=== PATIENT | female | born 1985 | race American Indian/Alaskan Native ===

== ENCOUNTER 2018-02-05 18:16 | Emergency (ER) | payer SELFPAY ==
[2018-02-05 18:22] VITALS: BMI 32.8
[2018-02-05 20:21] LABS: URINE APPEARANCE CLEAR (CLEAR); URINE BILIRUBIN NEGATIVE (NEGATIVE); URINE BLOOD LARGE (NEGATIVE); URINE COLOR YELLOW (YELLOW); URINE GLUCOSE (UA) NEGATIVE (NEGATIVE); URINE LEUKOCYTE ESTERASE NEGATIVE Leu/uL (NEGATIVE); URINE PROTEIN TRACE mg/dL (<30 mg/dL); URINE UROBILINOGEN 0.2 E.U./dL (<1 E.U./dL)
[2018-02-05 20:22] LABS: HCG,QUALITATIVE URINE POSITIVE (NEGATIVE)
[2018-02-05 20:30] LABS: URINE BACTERIA SMALL (NEG); URINE WBC NEGATIVE /hpf (0-6)
[2018-02-05 20:53] LABS: BASO # 0.02 K/mm3 (0.0-2.0); BASO % 0.3 % (0.0-3.0); EOS # 0.1 (0.0-0.7); EOS % 2.1 % (1.5-5.0); GRAN # 3.54 (1.4-6.5); GRAN % 58.1 % (50.0-68.0); HEMOGLOBIN 11.2 g/dL (12.0-16.0); LYMPH % 32.5 % (22.0-35.0); MEAN CELL VOLUME 84.3 fl (80.0-105.0); MEAN PLATELET VOLUME 11.2 fl (7.0-11.0); MONO # 0.4 (0.1-0.6); RBC 4.15 10^6/uL (3.5-6.1); RED CELL DISTRIBUTION WIDTH 13.9 % (11.5-14.5); WHITE BLOOD COUNT 6.1 10^3/uL (4.5-11.0)
[2018-02-05 21:00] LABS: INR 1.03; PROTHROMBIN TIME 11.8 SECONDS (9.4-12.5)
[2018-02-05 21:03] LABS: ALB/GLOB RATIO 1.3 (1.1-1.8); ALBUMIN 4.3 g/dL (3.0-4.8); ALT/SGPT 16 U/L (7-56); AST/SGOT 25 U/L (14-36); BLOOD UREA NITROGEN 18 mg/dL (7-21); CALCIUM 9.4 mg/dL (8.4-10.5); GFR NON-AFRICAN AMERICAN > 60
--- NOTE | 2018-02-05 21:19 | ED PDOC ---
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 States her LMP was December 19 and she started spotting 3days ago. States she was seen at [facility] [place] and was advised to return in 48hrs for a repeat blood work. States her Beta was 2100 2days ago. She denies abdominal pain. Denies nausea, vomiting, fever, chills, urinary symptoms, any other complaint. Past Medical History - Provider Review Nursing Documentation Reviewed: Yes - Infectious Disease Hx of Infectious Diseases: None - Cardiac Hx Cardiac Disorders: No - Pulmonary Hx Asthma: Yes (inhaler as needed) - Musculoskeletal/Rheumatological Hx Musculoskeletal Disorders: No - Psychiatric Hx Substance Use: No - Anesthesia Hx Anesthesia: No Family/Social History - Physician Review Nursing Documentation Reviewed: Yes Family/Social History: Unknown Family HX Smoking Status: Never Smoked Hx Alcohol Use: No Hx Substance Use: No Allergies/Home Meds Allergies/Adverse Reactions: Allergies acetaminophen Allergy (Verified 02/05/18 19:19) RASH shellfish derived Allergy (Verified 02/05/18 19:19) RASH Review of Systems - Physician Review All systems were reviewed & negative as marked: Yes - Review of Systems Constitutional: Normal Eyes: Normal ENT: Normal Respiratory: Normal Cardiovascular: Normal Gastrointestinal: Normal. absent: Abdominal Pain Genitourinary Female: Vaginal Bleeding Musculoskeletal: Normal Skin: Normal Neurological: Normal Endocrine: Normal Hemo/Lymphatic: Normal Psychiatric: Normal Physical Exam Vital Signs Reviewed: Yes Vital Signs Temp Pulse Resp BP Pulse Ox 02/05/18 18:21 98.0 F 88 18 117/77 100 Temperature: Afebrile Blood Pressure: Normal Pulse: Regular Respiratory Rate: Normal Appearance: Positive for: Well-Appearing, Non-Toxic, Comfortable Pain Distress: None Mental Status: Positive for: Alert and Oriented X 3 - Systems Exam Head: Present: Atraumatic, Normocephalic Pupils: Present: PERRL Extroacular Muscles: Present: EOMI Conjunctiva: Present: Normal Mouth: Present: Moist Mucous Membranes Neck: Present: Normal Range of Motion Respiratory/Chest: Present: Clear to Auscultation, Good Air Exchange. No: Respiratory Distress, Accessory Muscle Use Cardiovascular: Present: Regular Rate and Rhythm, Normal S1, S2. No: Murmurs Abdomen: Present: Normal Bowel Sounds. No: Tenderness, Distention, Peritoneal Signs, Rebound, Guarding, McBurney's Point Tender, Rovsing's Sign Present Genitourinary/Pelvic Exam: No: Cervical os Closed Back: Present: Normal Inspection Upper Extremity: Present: Normal Inspection. No: Cyanosis, Edema Lower Extremity: Present: Normal Inspection. No: Edema Neurological: Present: GCS=15, CN II-XII Intact, Speech Normal Skin: Present: Warm, Dry, Normal Color. No: Rashes Psychiatric: Present: Alert, Oriented x 3, Normal Insight, Normal Concentration Medical Decision Making ED Course and Treatment: 02/05/18 22:52 PT presented for stated history She was not in any distress [place] [id number] [place] noted. It was higher than the 2100 she had 2days ago Impression Single live intrauterine gestation Less than 4 weeks size. Gestational sac is seen. No pole or heart rate identified. Bilateral ovarian cysts. Consider follow up study in 1-2 weeks as clinically warranted. 02/06/18 01:30 Result was DW the pt. She was advised to f/u with OB in 48hrs for repeat beta and in 2weeks for repeat US - Lab Interpretations Lab Results: 02/05/18 20:38 02/05/18 20:38 Lab Results 02/05/18 20:38: Sodium 139, Potassium 3.7, Chloride 105, Carbon Dioxide 23, Anion Gap 14, BUN 18, Creatinine 0.8, Est GFR ( Amer) > 60, Est GFR (Non- Af Amer) > 60, Random Glucose 89, Calcium 9.4, Total Bilirubin 0.2, AST 25, ALT 16, Alkaline Phosphatase 48, Total Protein 7.5, Albumin 4.3, Globulin 3.2, Albumin/Globulin Ratio 1.3 02/05/18 20:38: PT 11.8, INR 1.03, APTT 34.0 02/05/18 20:38: WBC 6.1, RBC 4.15, Hgb 11.2 L, Hct 35.0 L, MCV 84.3, MCH 27.0, MCHC 32.0, RDW 13.9, Plt Count 207, MPV 11.2 H, Gran % 58.1, Lymph % (Auto) 32.5, [place] % (Auto) 7.0 H, Eos % (Auto) 2.1, Baso % (Auto) 0.3, Gran # 3.54, Lymph # (Auto) 2.0, [place] # (Auto) 0.4, Eos # (Auto) 0.1, Baso # (Auto) 0.02 02/05/18 20:02: Urine Color Yellow, Urine Appearance Clear, Urine pH 6.0, Ur Specific [place] >= 1.030, Urine Protein Trace H, Urine Glucose (UA) Negative, Urine Ketones Negative, Urine Blood Large H, Urine Nitrate Negative, Urine Bilirubin Negative, Urine Urobilinogen 0.2, Ur Leukocyte Esterase Negative, Urine RBC 5 - 10, Urine WBC Negative, Ur Epithelial Cells 4 - 5, Urine Bacteria Small, Urine HCG, Qual Positive - RAD Interpretation Radiology Orders: 02/05/18 20:09 TRANSVAGINAL [US] Stat Disposition/Present on Arrival - Present on Arrival Any Indicators Present on Arrival: No History of DVT/PE: No History of Uncontrolled Diabetes: No Urinary Catheter: No History of Decub. Ulcer: No History Surgical Site Infection Following: None - Disposition Have Diagnosis and Disposition been Completed?: Yes Diagnosis: Threatened Disposition: HOME/ ROUTINE Disposition Time: 22:55 Patient Plan: Discharge Condition: STABLE Discharge Instructions (ExitCare): Threatened Miscarriage (DC) Additional Instructions: Follow up with your OB in 48hrs for a repeat beta Return to Emergency department for any new symptoms Referrals: Mary Marrero MD [Primary Care Provider] - Follow up with primary Mariela Cardona MD [Staff Provider] - Follow up with primary Forms: [employer] (Danish), WORK NOTE
[2018-02-05 22:33] VITALS: RESP 17
[2018-02-05 23:08] VITALS: BP 105/62; PULSE 78; TEMP 98.1; O2SAT 99
--- NOTE | 2018-02-06 12:12 | US ---
Date of service: 02/05/2018 HISTORY: ; bleeding COMPARISON: None available. TECHNIQUE: Transvaginal sonographic evaluation of the pelvis performed FINDINGS: UTERUS: Measures 7.6 x 4.4 x 6.0 cm. Anteverted. Normal in size and appearance. No fibroid or other mass lesion seen.. There is a small fluid collection within the endometrial canal that may represent a gestational sac. These findings could represent a very early however evolving spontaneous cannot be completely excluded given the patient's history of bleeding. Follow-up serial serum beta HCG and serial ultrasound recommended to assess for development of viable intrauterine gestation.. Gestational sac: MSD = 0.56 cm = out of range--less than 4 weeks Yolk sac: pole: Not visualized Heart motion: Not detected ENDOMETRIUM: Measures 7.5 mm in diameter. Unremarkable. CERVIX: Cervix is closed measuring approximately 3.3 cm RIGHT OVARY: Measures 2.9 x 1.8 x 3.1 cm. No solid mass. Normal flow. Small cyst measuring 1.2 x 0.6 x 0.9 LEFT OVARY: Measures 3.3 x 2.1 x 2.7 cm. No solid mass. Normal flow. Small cyst measuring approximately 2.6 x 1.8 x 2.2 FREE FLUID: No significant free fluid noted. OTHER FINDINGS: None. IMPRESSION: There is a small fluid collection that appears represent could represent a gestational sac with questionable very small internal yolk sac. No pole is seen. Collectively, these findings could represent very early intrauterine gestation however evolving spontaneous not completely excluded given the patient's history of bleeding. Recommend follow-up serial serum beta HCG and serial pelvic ultrasounds to assess for development of viable uterine gestation. Small bilateral ovarian cysts. This report was placed in [place] review folder for follow up
== END 2018-02-05 23:08 | disposition home or self-care (01) ==
LOC: ED 18:16
DX: O20.0 Threatened abortion (principal); Z3A.01 Less than 8 weeks gestation of pregnancy